=== PATIENT | female | born 1980 | race Caucasian/White ===

== ENCOUNTER 2019-06-08 21:19 | Emergency (ER) | payer MEDICARE, MEDICAID ==
--- NOTE | 2019-06-08 21:32 | ER Report ---
History and Physical Time Seen By MD: 21:28 Hx. of Stated Complaint: PT REPORTS CHEST PAIN. PT HAD STRESSFUL DAY AT [facility] WITH A PT THAT WAS YELLING MOST OF THE DAY. HPI/ROS CHIEF COMPLAINT: Chest pain and shortness of breath HISTORY OF PRESENT ILLNESS: This is a 38-year-old female. Had a stressful day today. Resident of the [facility]. Surfing short of breath have some chest pain. The symptoms are gone now. EMS brought her to the hospital. Gave a dose of aspirin. She says she is feeling better now. She does have a history of anxiety and has been under some stress recently both related to other residents and family concerns. Denies any cough or fevers recently. No recent illnesses. Denies any nausea or vomiting. Is having some stiffness in her legs from her cerebral palsy. No problems with bowels. No dysuria. Allergies: Coded Allergies: Penicillins (Verified Allergy, Mild, 06/08/19) amoxicillin (Verified Allergy, Mild, 06/08/19) clavulanic acid (Verified Allergy, Mild, 06/08/19) Uncoded Allergies: BEE STINGS (Allergy, Mild, 01/23/09) Home Meds Reported Medications Ondansetron Hcl (Zofran) 4 Mg Tab, 4 MG PO Q6H PRN, 0 Refills 01/23/09 Ascorbic Acid (Vitamin C) 500 Mg Tab.chew, 500 MG PO BID, 0 Refills 01/23/09 Carbamazepine (Tegretol Xr) 200 Mg Tab.sr.12h, 200 MG PO BID, 0 Refills 01/23/09 Reviewed Nurses Notes: Yes Constitutional Vital Sign - Last 24 Hours 06/08/19 06/08/19 06/08/19 06/08/19 21:21 21:25 21:30 21:34 Temp 98.9 Pulse 86 85 Resp 20 13 B/P (MAP) 155/86 (109) 155/86 144/94 (111) Pulse Ox 89 92 O2 Delivery Room Air 06/08/19 06/08/19 06/08/19 06/08/19 21:39 21:54 22:00 22:09 Pulse 84 86 91 Resp 18 24 21 B/P (MAP) 140/80 (100) Pulse Ox 93 93 92 06/08/19 06/08/19 06/08/19 06/08/19 22:24 22:30 22:39 22:54 Pulse 92 89 89 Resp 18 10 22 B/P (MAP) 153/83 (106) Pulse Ox 92 94 92 06/08/19 06/08/19 23:00 23:09 Pulse 90 Resp 22 B/P (MAP) 136/78 (97) Physical Exam General Appearance: The patient is alert. No acute distress. Non-toxic in appearance. Eyes: Pupils are equal, round. No pallor, injection or icterus. ENT: Mucous membranes are moist. Normal oral mucosa. Neck: Supple and non tender. Respiratory: Lungs are clear to auscultation. Cardiovascular: Regular rate and rhythm. No murmurs, gallops or rubs. Normal capillary refill. Gastrointestinal: Abdomen is soft and non tender. Nondistended. Normal active bowel sounds. Neurological: Alert and oriented x3. Skin: Warm and dry. No rashes. DIFFERENTIAL DIAGNOSIS: After history and physical exam, differential diagnosis was considered for chest pain including but not limited to myocardial ischemia, pericarditis pulmonary embolus, chest wall pain, pleural inflammation and pulmonary infectious causes. Medical Decision Making Data Points Result Diagram: 06/08/19212806/08/192128 Laboratory Hematology Test 06/08/19 21:29 White Blood Count 7.7 k/uL (4.5-11.0) Red Blood Count 4.91 M/uL (4.17-5.56) Hemoglobin 14.6 g/dL (12.0-16.0) Hematocrit 43.1 % (34.0-47.0) Mean Corpuscular Volume 87.8 fL (80.0-96.0) Mean Corpuscular Hemoglobin 29.8 pg (26.0-33.0) Mean Corpuscular Hemoglobin Concent 34.0 g/dL (32.0-36.0) Red Cell Distribution Width 13.5 % (11.5-14.5) Platelet Count 458 K/uL (150-450) H Mean Platelet Volume 6.8 fL (7.2-11.1) L Neutrophils (%) (Auto) 46.9 % (39.4-72.5) Lymphocytes (%) (Auto) 38.8 % (17.6-49.6) Monocytes (%) (Auto) 10.8 % (4.1-12.4) Eosinophils (%) (Auto) 2.6 % (0.4-6.7) Basophils (%) (Auto) 0.9 % (0.3-1.4) Nucleated RBC Relative Count (auto) 0.0 /100WBC Neutrophils # (Auto) 3.6 K/uL (2.0-7.4) Lymphocytes # (Auto) 3.0 K/uL (1.3-3.6) Monocytes # (Auto) 0.8 K/uL (0.3-1.0) Eosinophils # (Auto) 0.2 K/uL (0.0-0.5) Basophils # (Auto) 0.1 K/uL (0.0-0.1) Nucleated RBC Absolute Count (auto) 0.00 K/uL Chemistry Test 06/08/19 21:29 Sodium Level 137 mmol/L (137-145) Potassium Level 3.9 mmol/L (3.5-5.0) Chloride Level 102 mmol/L (98-107) Carbon Dioxide Level 22 mmol/L (22-31) Blood Urea Nitrogen 17 mg/dl (7-18) Creatinine 0.60 mg/dl (0.52-1.04) Glomerular Filtration Rate Calc > 60.0 Random Glucose 104 mg/dl (75-110) Calcium Level 9.5 mg/dl (8.4-10.2) Total Bilirubin 0.2 mg/dl (0.2-1.3) Aspartate Amino Transf (AST/SGOT) 24 U/L (0-35) Alanine Aminotransferase (ALT/SGPT) 30 U/L (0-56) Alkaline Phosphatase 104 U/L (0-126) Troponin I < 0.012 ng/ml Total Protein 8.5 g/dl (6.3-8.2) Albumin 4.5 g/dl (3.5-5.0) Human Chorionic Gonadotropin, Qual Negative (NEGATIVE) EKG/Imaging EKG Interpretation 12 lead EKG: Rhythm: Normal sinus rhythm, rate 82 [place]: normal QRS: normal ST segments: normal Imaging CHEST SINGLE AP COMPARISONS: None. ADDITIONAL PERTINENT HISTORY: Acute chest pain. Patient with history of cerebral palsy FINDINGS: Cardiomediastinal silhouette: Negative. Pulmonary vasculature: Negative. Lung [place]: Negative. Pleural spaces: Negative. Osseous structures: Negative. Surrounding soft tissues: Negative. IMPRESSION: No evidence of acute cardiopulmonary disease. Report Dictated By: Emanuel Faustin MD at 06/08/2019 10:05 PM ED Course/Re-evaluation Clinical Indication for ER IV: Hydration, IV Access ED Course EKG, x-ray, and labs are unremarkable. The patient has no recurrent symptoms. Likely due to her anxiety and stress causing the chest pain. No changes to medicines at this time. Recommended follow-up with primary care. Decision to Disposition Date: Jun 08, 2019 Decision to Disposition Time: 22:59 Depart Departure Latest Vital Signs Vital Signs Date Time Temp Pulse Resp B/P (MAP) Pulse Ox O2 Delivery O2 Flow Rate FiO2 06/08/19 23:09 90 22 06/08/19 23:00 136/78 (97) 06/08/19 22:54 92 06/08/19 21:25 98.9 Room Air Impression: Primary Impression: Chest pain Additional Impression: Anxiety Condition: Improved Disposition: HOME OR SELF-CARE Referrals: OTTO VARGAS PA-C (PCP) Patient Instructions: Anxiety (ED), Chest Pain (ED) Additional Instructions: your chest pain tonight appears to have been due to stress and anxiety. No other problems noted on labs, EKG, and imaging tonight. We recommend rest and follow-up with your primary care provider this week. Problem Qualifiers Primary Impression: Chest pain Chest pain type: unspecified Qualified Codes: R07.9 - Chest pain, unspecified SEAN BEAVERS MD Jun 08, 2019 21:32
[2019-06-08] MEDS ORDERED: ASPIRIN 81 MG CHEW PO ONE (21:40)
[2019-06-08 22:09] LABS: PLATELET COUNT, AUTOMATED 458 K/uL (150-450)
--- NOTE | 2019-06-08 22:14 | RADIOLOGY IMAGING REPORT ---
FACILITY: [facility] PATIENT NAME: Inessa Tracy : 1980 MR: [id number] V: [id number] EXAM DATE: ORDERING PHYSICIAN: SEAN BEAVERS TECHNOLOGIST: Location: [facility] Patient: Inessa Tracy : 1980 Visit/Account:[id number] Date of Sevice: 06/08/2019 CHEST SINGLE AP COMPARISONS: None. ADDITIONAL PERTINENT HISTORY: Acute chest pain. Patient with history of cerebral palsy FINDINGS: Cardiomediastinal silhouette: Negative. Pulmonary vasculature: Negative. Lung [place]: Negative. Pleural spaces: Negative. Osseous structures: Negative. Surrounding soft tissues: Negative. IMPRESSION: No evidence of acute cardiopulmonary disease. Report Dictated By: Emanuel Faustin MD at 06/08/2019 10:05 PM Report E-Signed By: Emanuel Faustin MD at 06/08/2019 10:06 PM [id number]
[2019-06-08 23:00] VITALS: BP 136/78
--- NOTE | 2019-06-09 00:27 | EKG ---
FACILITY: [facility] [place] [place] PATIENT NAME: WESLEY MAN : [id number] MR: [id number] V: [id number] EXAM DATE: ORDERING PHYSICIAN: SEAN BEAVERS TECHNOLOGIST: JANE Test Reason : Chest Blood Pressure : / mmHG Vent. Rate : 082 BPM Atrial Rate : 082 BPM P-R Int : 124 ms QRS Dur : 088 ms QT Int : 366 ms P-R-T Axes : 060 067 054 degrees QTc Int : 427 ms Normal sinus rhythm Normal ECG No previous ECGs available Confirmed by ETHEL BOYD ([id number]) on 06/09/2019 6:40:21 AM Referred By: NIMESH Confirmed By:ETHEL BOYD
== END 2019-06-08 23:15 | disposition home or self-care (01) ==
LOC: ER 21:23
DX: R07.9 Chest pain, unspecified (principal); F41.9 Anxiety disorder, unspecified
CPT/HCPCS: 71045; 82040; 82247; 82310; 82374; 82435; 82565; 82947; 84075; 84132; 84155; 84295; 84450; 84460; 84484; 84520; 84703; 85025; 93005; 99284

== ENCOUNTER → 2019-06-08 | Outpatient (CLI) | payer MEDICARE, MEDICAID ==
[~2019-06-08] MED LIST: CARB-83 PO; OND4 PO; [UNRECOGNIZED DRUG - CODE] PO
== END ==
LOC: AMB 20:51
PROVIDERS: ATTEND Nurse Practitioner
DX: R07.9 Chest pain, unspecified (principal)
CPT/HCPCS: A0425; A0427